=== PATIENT | female | born 1980 | race Hispanic/Latino ===

== ENCOUNTER → 2019-07-12 | Day surgery (SDC) | payer OTHER ==
--- OUTSIDE RECORDS SUMMARY | 2019-07-12 09:46 | XMS REPORT ---
:1980 [facility] Address [address] [place] [address] Dr. Marroquin [address] [place] [id number] Care Team Providers Name Role Phone Unavailable Unavailable Unavailable Problems This patient has no known problems. Allergies, Adverse Reactions, Alerts This patient has no known allergies or adverse reactions. Medications This patient has no known medications.
--- NOTE | 2019-07-12 11:19 | RAD REPORT ---
EXAM DESCRIPTION: Ultrasound-guided vacuum assisted right breast core biopsy CLINICAL HISTORY: Breast mass R92.8 COMPARISON: No comparisons FINDINGS: Informed consent was obtained and time-out was performed. The patient's right breast was prepped and draped in the usual sterile fashion. 1% lidocaine was used for local anesthetic purposes. Utilizing aseptic technique and ultrasound guidance, a 12 gauge vacuum assisted core biopsy device wa s used to obtain 2 core specimens through the mass of interest. A post biopsy clip was then placed. All collected material was sent for cytology. Patient tolerated procedure well. IMPRESSION: Successful ultrasound guided vacuum assisted right breast mass biopsy.
== END ==
LOC: DS 09:44
PROVIDERS: ATTEND Obstetrics & Gynecology
DX: D24.1 Benign neoplasm of right breast (principal)
CPT/HCPCS: 19083; 88305